=== PATIENT | male | born 1990 | race Caucasian/White ===

== ENCOUNTER 2016-09-04 16:29 | Emergency (ER) | payer OTHER ==
[~2016-09-04] VITALS: Ht 182.9 cm; Wt 86.2 kg
[2016-09-04 16:30] VITALS: BP 139/66
[2016-09-04] MEDS ORDERED: KETOROLAC 60 MG/2 ML VIAL (J1885) IM ONE (18:15)
[2016-09-04] MEDS ORDERED: AUGMENTIN 875 MG TAB PO ONE (18:15)
[2016-09-04] MEDS ORDERED: NORCOTAB PO (18:43)
[2016-09-04] MEDS ORDERED: AUGM875T27 PO (18:43)
[2016-09-04] MEDS ORDERED: NORCO 5/325MG TABLET (BULK FOR ED) PO ONE (18:45)
== END 2016-09-04 18:48 | disposition home or self-care (01) ==
LOC: M ED 18:12
DX: J01.00 Acute maxillary sinusitis, unspecified (principal)
CPT/HCPCS: 96372; 99281; J1885

== ENCOUNTER → 2016-10-09 | Outpatient (CLI) | payer OTHER ==
[~2016-10-09] MED LIST: AUGM875T27 PO; NORCOTAB PO
--- NOTE | 2016-10-09 14:32 | REP ---
MAXILLOFACIAL CT WITHOUT CONTRAST: HISTORY: Acute frontal sinusitis. Bilateral Gu[place] cells are present. Mild mucosal thickening is present in the frontal sinuses. Minimal mucosal thickening is present in the ethmoid and maxillary sinuses. The sphenoid sinuses are clear. Mucosal thickening involves the osteomeatal units. The middle and inferior nasal turbinates are partially paradoxical. There is minimal deviation of the nasal septum to the right. The nasal septum abuts the right middle turbinate. The cribriform plate, medial ritchie of the orbits, and optic canals are intact. There is aeration of the anterior clinoid processes. The carotid canals form a segment of the posterolateral ritchie of the sphenoid sinus. The right sphenoid sinus septum inserts into the right internal carotid canal wall. IMPRESSION: Sinus mucosal thickening as described above. Signed by César Nicole MD 10/09/2016 02:47 P
== END ==
LOC: M RAD 13:19
PROVIDERS: ATTEND Specialist
DX: J01.10 Acute frontal sinusitis, unspecified (principal)

== ENCOUNTER → 2017-01-22 | Outpatient (CLI) | payer OTHER ==
[~2017-01-22] MED LIST changes: -AUGM875T27 PO; +AUGM875T28 PO
--- NOTE | 2017-01-22 09:29 | REP ---
MAXILLOFACIAL CT WITHOUT CONTRAST: HISTORY: Chronic pansinusitis. COMPARISON: 10/09/2016 Bilateral [place] cells are present. Minimal mucosal thickening is present in the ethmoid and maxillary sinuses. The remaining sinuses are clear. Mucosal thickening and involves the left osteomeatal unit. The right osteomeatal unit is patent. The middle and inferior nasal turbinates are partially paradoxical. There is minimal deviation of the nasal septum to the right. The nasal septum abuts the right middle nasal turbinate. The cribriform plates, medial ritchie of the orbits and optic canals are intact. There is aeration of the anterior clinoid processes. The carotid canals form a segment of the posterolateral ritchie of the sphenoid sinus. The right sphenoid sinus septum inserts into the right internal carotid canal wall. IMPRESSION: Sinus mucosal thickening as described above. Signed by César Nicole MD 01/22/2017 09:53 A
== END ==
LOC: M RAD 08:46
PROVIDERS: ATTEND Specialist
DX: J01.10 Acute frontal sinusitis, unspecified (principal); J32.4 Chronic pansinusitis

== ENCOUNTER 2017-05-04 20:31 | Emergency (ER) | payer OTHER, MEDICAID ==
[2017-05-04] MEDS ORDERED: KETOROLAC 60 MG/2 ML VIAL (J1885) IM (22:15)
[2017-05-04] MEDS: IBUPROFEN 800 MG TAB PO (23:11)
== END 2017-05-04 23:18 | disposition home or self-care (01) ==
LOC: M ED 20:31
DX: S02.2XXA Fracture of nasal bones, initial encounter for closed fracture (principal); W50.0XXA Accidental hit or strike by another person, initial encounter; Y92.89 Other specified places as the place of occurrence of the external cause; Y93.89 Activity, other specified; Y99.0 Civilian activity done for income or pay; F41.9 Anxiety disorder, unspecified; Z79.899 Other long term (current) drug therapy; Z88.5 Allergy status to narcotic agent; Z88.8 Allergy status to other drugs, medicaments and biological substances; Z87.891 Personal history of nicotine dependence
CPT/HCPCS: 70450

== ENCOUNTER 2017-05-22 10:56 | Day surgery (SDC) | payer OTHER ==
[2017-05-22] MEDS: NS 1,000 ML IV (11:39)
[2017-05-22] MEDS ORDERED: fentaNYL 100 MCG/2 ML INJECTION (J3010) As Ordered (12:03)
[2017-05-22] MEDS ORDERED: PROPOFOL 200 MG/20 ML VIAL As Ordered (12:07)
[2017-05-22] MEDS ORDERED: LIDOCAINE 2% INJ 100 MG/5 ML SDV (FOR ANES.) As Ordered (12:28)
== END 2017-05-22 13:01 | disposition home or self-care (01) ==
LOC: M OPP 10:56
DX: R12 Heartburn (principal); K22.8 Other specified diseases of esophagus; K31.89 Other diseases of stomach and duodenum; K21.9 Gastro-esophageal reflux disease without esophagitis; F41.9 Anxiety disorder, unspecified; F32.9 Major depressive disorder, single episode, unspecified; K20.0 Eosinophilic esophagitis; K58.9 Irritable bowel syndrome, unspecified; Z88.8 Allergy status to other drugs, medicaments and biological substances; Z79.899 Other long term (current) drug therapy
CPT/HCPCS: 43239

== ENCOUNTER → 2017-10-25 | Outpatient (CLI) | payer MEDICAID | LOC: M RAD 15:56 | DX: J01.10 Acute frontal sinusitis, unspecified (principal); J32.4 Chronic pansinusitis | CPT/HCPCS: 70486 ==